=== PATIENT | male | born 1985 | race African-American/Black ===

== ENCOUNTER 2024-06-28 11:36 | Emergency (ER) | payer OTHER ==
[~2024-06-28] VITALS: Ht 175.3 cm; Wt 91.6 kg
[~2024-06-28 11:36] MED LIST: ONDA4TAB5 PO
[2024-06-28 12:18] LABS: BASOPHILS % (AUTO) 0.3 % (0.0-2.0); HEMATOCRIT 37.2 % (36.7-47.1); HEMOGLOBIN 12.5 g/dL (12.5-16.3); LYMPHOCYTES # (AUTO) 0.5 K/uL (0.8-4.8); LYMPHOCYTES % (AUTO) 7.3 % (20.5-51.5); MEAN CORPUSCULAR HEMOGLOBIN 29.3 uug (23.8-33.4); MEAN CORPUSCULAR HGB CONC 34 g/dL (32.5-36.3); MONOCYTES # (AUTO) 0.4 K/uL (0.1-1.30); MONOCYTES % (AUTO) 6.5 % (0.0-11.0); NEUTROPHILS # (AUTO) 5.5 K/uL (1.8-8.9); NEUTROPHILS % (AUTO) 85.9 % (38.5-71.5); PLATELET COUNT (AUTO) 171 K/uL (152-348); RED BLOOD CELL COUNT(AUTO) 4.27 MIL/uL (4.06-5.63); RED CELL DISTRIBUTION WIDTH 14.4 % (12.1-16.2); WHITE BLOOD COUNT (AUTO) 6.4 K/uL (3.6-10.2)
[2024-06-28 12:19] LABS: DIFFERENTIAL COMMENT 1
[2024-06-28] MEDS ORDERED: METOCLOPRAMIDE HCL 10 MG/2 ML VIAL ONE (12:22)
[2024-06-28 12:32] LABS: CALCIUM 8.9 mg/dL (8.5-10.1); POTASSIUM 3.3 mmol/L (3.5-5.1)
[2024-06-28 12:37] LABS: ALBUMIN 3.7 g/dL (3.4-5.0); BILIRUBIN,DIRECT 0.2 mg/dL (0.0-0.2); BILIRUBIN,TOTAL 0.8 mg/dL (0.2-1.0); TOTAL PROTEIN, SERUM 7.5 g/dL (6.4-8.2)
[2024-06-28] MEDS: METOCLOPRAMIDE HCL 10 MG/2 ML VIAL IV ONE (12:42)
[2024-06-28] MEDS: IV NORMAL SALINE 1000 ML BAG IV ONE (12:42)
[2024-06-28] MEDS ORDERED: POTASSIUM BICARBONATE/CIT AC 25 MEQ TABLET.EFF ONE (14:50)
[2024-06-28] MEDS: POTASSIUM BICARBONATE/CIT AC 25 MEQ TABLET.EFF PO ONE (14:54)
[2024-06-28] MEDS ORDERED: METO-295 PO (16:29)
[2024-06-28] MEDS ORDERED: DIPH1TAB PO (16:29)
[2024-06-28 17:14] VITALS: BP 123/79; TEMP 98.6; O2SAT 97
== END 2024-06-28 17:15 | disposition home or self-care (01) ==
LOC: ER 11:50
DX: R11.2 Nausea with vomiting, unspecified (principal); R19.7 Diarrhea, unspecified; F19.10 Other psychoactive substance abuse, uncomplicated
CPT/HCPCS: 99283; 96374; 96361; 80076; 80048; 83690; 85025; 36415; J2765; J7040; A4606; A4663

== ENCOUNTER 2024-12-22 22:14 | Emergency (ER) | payer OTHER ==
[~2024-12-22] VITALS: Ht 175.3 cm; Wt 97.5 kg
[~2024-12-22 22:14] MED LIST changes: +DIPH1TAB PO; +METO-295 PO
[2024-12-22 22:16] VITALS: BP 155/100
[2024-12-22] MEDS ORDERED: KETOROLAC TROMETHAMINE 30 MG INJ ONE (22:30)
[2024-12-22] MEDS: IV NORMAL SALINE 500 ML BAG IV ONE (22:35)
[2024-12-22] MEDS: ONDANSETRON 4 MG/2 ML VIAL IV ONE (22:35)
[2024-12-22] MEDS: KETOROLAC TROMETHAMINE 15 MG INJ IVP STA (22:36)
[2024-12-22 22:46] LABS: PLATELET COUNT (AUTO) 214 K/uL (152-348); RED BLOOD CELL COUNT(AUTO) 4.94 MIL/uL (4.06-5.63); RED CELL DISTRIBUTION WIDTH 14.2 % (12.1-16.2); WHITE BLOOD COUNT (AUTO) 8.5 K/uL (3.6-10.2)
[2024-12-22 23:03] LABS: CREATININE 1.3 mg/dL (0.6-1.3); SODIUM SERUM 143.0 mmol/L (136-145); UREA NITROGEN, BLOOD 15.0 mg/dL (7-18)
[2024-12-22 23:09] LABS: ASPARTATE AMINOTRANSFERASE 9.0 U/L (15-37); TOTAL PROTEIN, SERUM 7.4 g/dL (6.4-8.2)
[2024-12-23] MEDS ORDERED: POTASSIUM CHLORIDE 20 MEQ TAB.PRT.SR ONE (00:30)
[2024-12-23] MEDS ORDERED: HYDR-4209 PO (00:31)
[2024-12-23] MEDS ORDERED: TAMS-3 PO (00:31)
[2024-12-23] MEDS ORDERED: IBUP-1957 PO (00:31)
[2024-12-23] MEDS ORDERED: HYDROCODONE/APAP 5-325MG TABLET ONE (00:31)
[2024-12-23] MEDS ORDERED: TAMSULOSIN HCL 0.4 MG CAP.SR.24H ONE (00:31)
[2024-12-23] MEDS: POTASSIUM CHLORIDE 20 MEQ TAB.PRT.SR PO ONE (00:36)
[2024-12-23] MEDS: HYDROCODONE/APAP 5-325MG TABLET PO ONE (00:36)
[2024-12-23] MEDS: TAMSULOSIN HCL 0.4 MG CAP.SR.24H PO ONE (00:36)
[2024-12-23 00:41] VITALS: BP 145/95; O2SAT 100
== END 2024-12-23 00:42 | disposition home or self-care (01) ==
LOC: ER 22:24
DX: R10.11 Right upper quadrant pain (principal); R11.2 Nausea with vomiting, unspecified; R03.0 Elevated blood-pressure reading, without diagnosis of hypertension; E87.6 Hypokalemia; N13.2 Hydronephrosis with renal and ureteral calculous obstruction
CPT/HCPCS: 99285; 74176; 96374; 96361; 96375; 80076; 80048; 83690; 85025; 36415; J1885; J2405; J7040; A4606; A4663